=== PATIENT | female | born 1990 | race Caucasian/White ===

== ENCOUNTER 2020-10-20 06:46 | Emergency (ER) | payer SELFPAY ==
[2020-10-20 06:48] VITALS: BP 120/76; PULSE 81; RESP 20; TEMP 36.6; O2SAT 95
--- NOTE | 2020-10-20 07:12 | PC.NURSE ---
AT PT BEDSIDE TO START IV. PT STATES I JUST WANT TO GO HOME. PT EDUCATION ON RISKS OF LEAVING WITHOUT SEEING MD. STATES IM FINE, I JUST WANT TO GO HOME. PT FAMILY AT BEDSIDE. PT WALKED OUT AMBULANCE BAY WITH STEADY GAIT.
== END 2020-10-20 07:36 | disposition left against medical advice (07) ==
DX: R10.9 Unspecified abdominal pain (principal)
CPT/HCPCS: 99199